=== PATIENT | male | born 1990 | race African-American/Black ===

== ENCOUNTER 2018-09-18 02:56 | Emergency (ER) | payer OTHER, MEDICAID ==
[~2018-09-18] VITALS: Ht 188 cm; Wt 100.0 kg
[2018-09-18] MEDS ORDERED: DIPHENHYDRAMINE 50MG/ML VIAL IM STA (06:51)
[2018-09-18] MEDS ORDERED: LORAZEPAM 2MG/ML CPJ IM ONE (07:00)
[2018-09-18] MEDS ORDERED: OLANZAPINE 10 MG/VIAL IM ONE (07:00)
[2018-09-18] MEDS ORDERED: BACITRACIN ZINC OINT UDPKT TOP ONE (07:00)
[2018-09-18 07:38] LABS: CLARITY URINE CLEAR (CLEAR); COLOR URINE YELLOW (YELLOW); KETONES URINE TRACE (NEGATIVE); LEUKOCYTE ESTERASE URINE NEGATIVE (NEGATIVE); NITRITE URINE NEGATIVE (NEGATIVE); OCCULT BLOOD URINE 2+ (NEGATIVE); PROTEIN URINE NEGATIVE (NEGATIVE); SPECIFIC GRAVITY URINE 1.007 (1.005-1.030); UROBILINOGEN URINE 0.2 E.U./dL (0.2-1.0)
[2018-09-18 09:22] LABS: HEMATOCRIT. 47.5 % (42.0-52.0); HEMOGLOBIN. 15.7 g/dL (14.0-18.0); MEAN CORPUSCULAR HEMOGLOBIN 28.4 pg (28.0-32.0); MEAN CORPUSCULAR VOLUME 85.7 fL (80.0-94.0); MEAN PLATELET VOLUME 7.7 fl (7.4-10.4); PLATELET 236 x1000/uL (130-400); RED BLOOD CELL COUNT 5.53 mill/uL (4.7-6.1); RED CELL DISTRIBUTION WIDTH 13.1 % (11.6-14.6)
[2018-09-18 09:24] LABS: CHLORIDE 100 mEq/L (98-107)
[2018-09-18 09:26] LABS: *AMPHETAMINES SCREEN URINE NEGATIVE (NEGATIVE); *BARBITURATES SCREEN URINE NEGATIVE (NEGATIVE); *BENZODIAZEPINES SCREEN URINE PRESUMTIVE POSITIVE (NEGATIVE)
[2018-09-18 09:27] LABS: *COCAINE SCREEN URINE NEGATIVE (NEGATIVE); CANNABINOID URINE SCREEN NEGATIVE (NEGATIVE); METHADONE URINE SCREEN NEGATIVE (NEGATIVE); OPIATES URINE SCREEN NEGATIVE (NEGATIVE); PHENCYCLIDINE URINE SCREEN NEGATIVE (NEGATIVE)
[2018-09-18 09:28] LABS: ETHANOL BLOOD < 10 mg/dL
[2018-09-18] MEDS ORDERED: TETANUS, DIPHTHERIA, PERTUSSIS VAC/PF 0.5ML (>7YR OLD) IM ONE (09:45)
[2018-09-18 10:08] VITALS: BP 161/81
[2018-09-18 10:18] LABS: PLATELET ESTIMATE NORMAL
== END 2018-09-18 11:58 | disposition home or self-care (01) ==
LOC: ER 02:56
DX: S00.81XA Abrasion of other part of head, initial encounter (principal); F20.9 Schizophrenia, unspecified; F91.8 Other conduct disorders; R45.1 Restlessness and agitation; R00.0 Tachycardia, unspecified; Z02.89 Encounter for other administrative examinations; Y35.893A Legal intervention involving other specified means, suspect injured, initial encounter; Y93.89 Activity, other specified; Y92.488 Other paved roadways as the place of occurrence of the external cause
CPT/HCPCS: 36415; 80053; 80305; 81003; 85025; 90471; 90715; 93005; 96372; 99284; G0482; J1200; J2060; J3490

== ENCOUNTER 2018-09-19 14:15 | Inpatient (IN) | payer MEDICAID, OTHER ==
[~2018-09-19] VITALS: Ht 172.7 cm; Wt 69.4 kg
[2018-09-19] MEDS: SODIUM CHLORIDE 0.9% 1,000 ML IV SCH (11:30)
[2018-09-19] MEDS ORDERED: SODIUM CHLORIDE 0.9% 1,000 ML IV ONE ×2 (15:05→16:33)
[2018-09-19] MEDS ORDERED: LORAZEPAM 2MG/ML CPJ IM STA (15:05)
[2018-09-19] MEDS ORDERED: ZIPRASIDONE MESYLATE 20MG/VIAL IM ONE (15:15)
[2018-09-19 15:54] LABS: HEMOGLOBIN. 15.2 g/dL (14.0-18.0); MEAN CORPUSCULAR HEMOGLOBIN 28.5 pg (28.0-32.0); MEAN CORPUSCULAR VOLUME 86.1 fL (80.0-94.0); MEAN PLATELET VOLUME 8.2 fl (7.4-10.4); PLATELET 260 x1000/uL (130-400); RED BLOOD CELL COUNT 5.35 mill/uL (4.7-6.1); RED CELL DISTRIBUTION WIDTH 12.9 % (11.6-14.6)
[2018-09-19 15:58] LABS: CHLORIDE 96 mEq/L (98-107)
[2018-09-19 16:02] LABS: ETHANOL BLOOD < 10 mg/dL
[2018-09-19 16:33] LABS: CREATINE KINASE 13913 IU/L (39-308)
[2018-09-19] MEDS ORDERED: LORAZEPAM 2MG/ML CPJ IV ONE (16:45)
[2018-09-19 17:06] LABS: PLATELET ESTIMATE NORMAL
[2018-09-19] MEDS ORDERED: MIDAZOLAM HCL 2 MG/2 ML VIAL IV ONE (17:30)
[2018-09-19] MEDS ORDERED: SODIUM CHLORIDE 0.9% 2,000 ML IV ONE (17:32)
[2018-09-19 18:33] LABS: CLARITY URINE CLEAR (CLEAR); COLOR URINE YELLOW (YELLOW); KETONES URINE 2+ (NEGATIVE); LEUKOCYTE ESTERASE URINE NEGATIVE (NEGATIVE); NITRITE URINE NEGATIVE (NEGATIVE); OCCULT BLOOD URINE 2+ (NEGATIVE); PROTEIN URINE TRACE (NEGATIVE); SPECIFIC GRAVITY URINE 1.015 (1.005-1.030)
[2018-09-19 18:43] LABS: *BARBITURATES SCREEN URINE NEGATIVE (NEGATIVE)
[2018-09-19 18:44] LABS: *AMPHETAMINES SCREEN URINE NEGATIVE (NEGATIVE); *BENZODIAZEPINES SCREEN URINE NEGATIVE (NEGATIVE); *COCAINE SCREEN URINE NEGATIVE (NEGATIVE); METHADONE URINE SCREEN NEGATIVE (NEGATIVE); OPIATES URINE SCREEN NEGATIVE (NEGATIVE); PHENCYCLIDINE URINE SCREEN NEGATIVE (NEGATIVE)
[2018-09-19 18:45] LABS: CANNABINOID URINE SCREEN NEGATIVE (NEGATIVE)
[2018-09-19] MEDS ORDERED: ONDANSETRON HCL 4MG/2ML INJ IV PRN (20:45)
[2018-09-19] MEDS ORDERED: CLONIDINE 0.1MG TABLET PO PRN (20:45)
[2018-09-19] MEDS ORDERED: MAGNESIUM/ALUMINUM HYDROXIDE/SIMETHICONE 30ML UDC PO PRN (20:45)
[2018-09-19] MEDS ORDERED: ACETAMINOPHEN 325MG TABLET PO PRN (20:45)
[2018-09-19] MEDS ORDERED: DIPHENHYDRAMINE 50MG/ML VIAL IV PRN (20:45)
[2018-09-19] MEDS ORDERED: LORAZEPAM 2MG/ML CPJ IV PRN (20:45)
[2018-09-19] MEDS ORDERED: DOCUSATE SODIUM 100MG CAPSULE PO PRN (20:45)
[2018-09-20] VITALS (32 sets, daily range): BP systolic 110–167; BP diastolic 54–106
[2018-09-20] MEDS ORDERED: HALOPERIDOL LACTATE 5MG/ML VIAL IM SCH (06:00)
[2018-09-20] MEDS ORDERED: ZIPRASIDONE MESYLATE 20MG/VIAL IM SCH (06:00)
[2018-09-20 06:22] LABS: BASOPHILS % 0.8 % (0.0-2.0); HEMATOCRIT. 44.3 % (42.0-52.0); HEMOGLOBIN. 14.8 g/dL (14.0-18.0); LYMPHOCYTES % 9.4 % (20.0-50.0); MEAN CORPUSCULAR VOLUME 86.6 fL (80.0-94.0); MEAN PLATELET VOLUME 8.5 fl (7.4-10.4); MONOCYTES % 10.9 % (2.0-8.0); NEUTROPHILS % 78.9 % (40.0-76.0); PLATELET 205 x1000/uL (130-400); RED BLOOD CELL COUNT 5.11 mill/uL (4.7-6.1); RED CELL DISTRIBUTION WIDTH 12.6 % (11.6-14.6)
[2018-09-20 06:29] LABS: CHLORIDE 104 mEq/L (98-107)
[2018-09-20 09:32] LABS: CREATINE KINASE 17093 IU/L (39-308)
[2018-09-20] MEDS: SODIUM CHLORIDE 0.9% 1,000 ML IV SCH (14:15)
[2018-09-20] MEDS ORDERED: HALOPERIDOL LACTATE 5MG/ML VIAL IM ONE (15:30)
[2018-09-20] MEDS: FAMOTIDINE 20MG/2ML VIAL IV SCH (15:44)
[2018-09-20] MEDS: LORAZEPAM 2MG/ML CPJ IV PRN ×3 (15:44→22:15)
[2018-09-20] MEDS: ENOXAPARIN 40MG/0.4ML SYR SUBCUT SCH (15:45)
[2018-09-20] MEDS ORDERED: BENZTROPINE MESYLATE 1MG TABLET PO ONE (15:45)
[2018-09-20] MEDS ORDERED: HALOPERIDOL LACTATE 5MG/ML VIAL IM PRN (21:15)
[2018-09-21] VITALS (62 sets, daily range): BP systolic 107–159; BP diastolic 49–103
[2018-09-21] MEDS: SODIUM CHLORIDE 0.9% 1,000 ML IV SCH ×4 (00:31→19:18)
[2018-09-21] MEDS: LORAZEPAM 2MG/ML CPJ IV PRN ×6 (01:37→21:50)
[2018-09-21] MEDS: HALOPERIDOL LACTATE 5MG/ML VIAL IM PRN (05:01)
[2018-09-21] MEDS: FAMOTIDINE 20MG/2ML VIAL IV SCH (09:19)
[2018-09-21] MEDS: ENOXAPARIN 40MG/0.4ML SYR SUBCUT SCH (15:00)
[2018-09-21 15:14] LABS: BASOPHILS % 0.5 % (0.0-2.0); EOSINOPHILS % 0.9 % (0.0-5.0); HEMATOCRIT. 39.7 % (42.0-52.0); HEMOGLOBIN. 13.1 g/dL (14.0-18.0); LYMPHOCYTES % 17.2 % (20.0-50.0); MEAN CORPUSCULAR VOLUME 87.6 fL (80.0-94.0); MEAN PLATELET VOLUME 7.7 fl (7.4-10.4); NEUTROPHILS % 69.4 % (40.0-76.0); PLATELET 194 x1000/uL (130-400); RED BLOOD CELL COUNT 4.53 mill/uL (4.7-6.1); RED CELL DISTRIBUTION WIDTH 12.8 % (11.6-14.6)
[2018-09-21 15:24] LABS: CHLORIDE 109 mEq/L (98-107)
[2018-09-21 15:46] LABS: CREATINE KINASE 6981 IU/L (39-308)
[2018-09-22] VITALS (10 sets, daily range): BP systolic 122–150; BP diastolic 65–94
[2018-09-22] MEDS: SODIUM CHLORIDE 0.9% 1,000 ML IV SCH ×3 (01:26→22:48)
[2018-09-22] MEDS: LORAZEPAM 2MG/ML CPJ IV PRN ×2 (05:26→21:21)
[2018-09-22] MEDS: FAMOTIDINE 20MG/2ML VIAL IV SCH (08:46)
[2018-09-22 10:45] LABS: BASOPHILS % 0.6 % (0.0-2.0); CHLORIDE 108 mEq/L (98-107); EOSINOPHILS % 1.4 % (0.0-5.0); HEMATOCRIT. 40.8 % (42.0-52.0); HEMOGLOBIN. 13.6 g/dL (14.0-18.0); LYMPHOCYTES % 14.7 % (20.0-50.0); MEAN CORPUSCULAR VOLUME 86.6 fL (80.0-94.0); MEAN PLATELET VOLUME 7.7 fl (7.4-10.4); MONOCYTES % 11.5 % (2.0-8.0); NEUTROPHILS % 71.8 % (40.0-76.0); PLATELET 213 x1000/uL (130-400); RED BLOOD CELL COUNT 4.71 mill/uL (4.7-6.1); RED CELL DISTRIBUTION WIDTH 12.5 % (11.6-14.6)
[2018-09-22 11:28] LABS: CREATINE KINASE 5376 IU/L (39-308)
[2018-09-22] MEDS ORDERED: OLAN15TA17 PO (12:52)
[2018-09-22] MEDS ORDERED: OLANZAPINE 15 MG PO SCH (13:30)
[2018-09-22] MEDS ORDERED: OLANZAPINE 5MG TABLET PO SCH (13:30)
[2018-09-22] MEDS: ENOXAPARIN 40MG/0.4ML SYR SUBCUT SCH (14:57)
[2018-09-22] MEDS: OLANZAPINE 5MG TABLET PO SCH (17:03)
[2018-09-22] MEDS: HALOPERIDOL LACTATE 5MG/ML VIAL IM PRN (21:21)
[2018-09-23] VITALS (21 sets, daily range): BP systolic 110–152; BP diastolic 50–107
[2018-09-23] MEDS: LORAZEPAM 2MG/ML CPJ IV PRN (04:45)
[2018-09-23] MEDS: HALOPERIDOL LACTATE 5MG/ML VIAL IM PRN (04:45)
[2018-09-23] MEDS: SODIUM CHLORIDE 0.9% 1,000 ML IV SCH (04:45)
[2018-09-23 08:59] LABS: BASOPHILS % 0.7 % (0.0-2.0); EOSINOPHILS % 2.8 % (0.0-5.0); HEMATOCRIT. 41.5 % (42.0-52.0); HEMOGLOBIN. 13.9 g/dL (14.0-18.0); LYMPHOCYTES % 23.9 % (20.0-50.0); MEAN CORPUSCULAR VOLUME 86.5 fL (80.0-94.0); MEAN PLATELET VOLUME 7.6 fl (7.4-10.4); MONOCYTES % 12.1 % (2.0-8.0); NEUTROPHILS % 60.5 % (40.0-76.0); PLATELET 216 x1000/uL (130-400); RED CELL DISTRIBUTION WIDTH 12.3 % (11.6-14.6)
[2018-09-23] MEDS: FAMOTIDINE 20MG/2ML VIAL IV SCH (09:11)
[2018-09-23] MEDS: OLANZAPINE 5MG TABLET PO SCH (09:11)
[2018-09-23 09:12] LABS: CHLORIDE 110 mEq/L (98-107)
[2018-09-23 09:32] LABS: CREATINE KINASE 3119 IU/L (39-308)
== END 2018-09-23 14:25 | disposition home or self-care (01) | DRG 469 ==
LOC: ER 14:37 → MICUSO 18:37 → EDBEDREQ 18:40 → EDBEDREQTM 18:40 → ENRESERV 22:47 → EDBEDREQSVC 09-20 00:03 → CANRESERV 09-20 04:06 → ENRESERV 09-20 04:06 → EDBEDREQSVC 09-20 11:02 → EDBEDREQ 09-20 11:02 → ENRESERV 09-20 11:55 → 8WST 09-22 15:29 → MICUSO 09-22 20:56
PROVIDERS: ADMIT Family Medicine Adult Medicine; ATTEND Family Medicine Adult Medicine
DX: N17.9 Acute kidney failure, unspecified (principal); R65.10 Systemic inflammatory response syndrome (SIRS) of non-infectious origin without acute organ dysfunction; M62.82 Rhabdomyolysis; E87.1 Hypo-osmolality and hyponatremia; E88.09 Other disorders of plasma-protein metabolism, not elsewhere classified; F20.9 Schizophrenia, unspecified; N39.0 Urinary tract infection, site not specified; F31.9 Bipolar disorder, unspecified; D72.829 Elevated white blood cell count, unspecified; R74.0 Nonspecific elevation of levels of transaminase and lactic acid dehydrogenase [LDH]
CPT/HCPCS: 36415; 73090; 76700; 80048; 80076; 80305; 82550; 84450; 84460; 96374; 96375; 99285; G0482; J1630; J1650; J2060; J2250; J3486; J3490; J7030; A4315

== ENCOUNTER 2023-05-01 17:20 | Emergency (ER) | payer MEDICARE, MEDICAID ==
[~2023-05-01] VITALS: Ht 172.7 cm; Wt 75.0 kg
[~2023-05-01 17:20] MED LIST: OLAN15TA35 PO
[2023-05-01 20:14] LABS: BASOPHILS % 0.6 % (0.0-2.0); EOSINOPHILS % 0.1 % (0.0-5.0); HEMATOCRIT. 44.5 % (42.0-52.0); HEMOGLOBIN. 15.1 g/dL (14.0-18.0); LYMPHOCYTES % 15.9 % (20.0-50.0); MEAN CORPUSCULAR HEMOGLOBIN 28.9 pg (28.0-32.0); MEAN CORPUSCULAR VOLUME 85.5 fL (80.0-94.0); MEAN PLATELET VOLUME 7.8 fl (7.4-10.4); MONOCYTES % 10.2 % (2.0-8.0); NEUTROPHILS % 73.2 % (40.0-76.0); PLATELET 213 x1000/uL (130-400); RED CELL DISTRIBUTION WIDTH 13.4 % (11.6-14.6)
[2023-05-01 20:17] LABS: CHLORIDE 108 mEq/L (98-107)
[2023-05-01 20:27] LABS: ETHANOL BLOOD < 10 mg/dL (-10)
[2023-05-01] MEDS ORDERED: LORAZEPAM 1MG TABLET PO ONE (20:30)
[2023-05-01] MEDS ORDERED: LORAZEPAM 1MG TABLET PO NR (23:15)
[2023-05-02] MEDS ORDERED: ZIPRASIDONE MESYLATE 20MG/VIAL IM ONE (03:00)
[2023-05-02 06:35] LABS: CLARITY URINE CLEAR (CLEAR); COLOR URINE DARK YELLOW (YELLOW); KETONES URINE 2+ (NEGATIVE); LEUKOCYTE ESTERASE URINE NEGATIVE (NEGATIVE); NITRITE URINE NEGATIVE (NEGATIVE); OCCULT BLOOD URINE 3+ (NEGATIVE); PROTEIN URINE 1+ (NEGATIVE); SPECIFIC GRAVITY URINE 1.029 (1.005-1.030)
[2023-05-02] MEDS ORDERED: LORAZEPAM 2MG/ML CPJ IM STA ×2 (06:40→07:18)
[2023-05-02] MEDS ORDERED: OLANZAPINE 10 MG/VIAL IM ONE ×4 (06:45→19:00)
[2023-05-02 07:14] LABS: *AMPHETAMINES SCREEN URINE NEGATIVE (NEGATIVE); *BARBITURATES SCREEN URINE NEGATIVE (NEGATIVE); *BENZODIAZEPINES SCREEN URINE NEGATIVE (NEGATIVE); *COCAINE SCREEN URINE NEGATIVE (NEGATIVE); CANNABINOID URINE SCREEN NEGATIVE (NEGATIVE); METHADONE URINE SCREEN NEGATIVE (NEGATIVE); OPIATES URINE SCREEN NEGATIVE (NEGATIVE); PHENCYCLIDINE URINE SCREEN NEGATIVE (NEGATIVE)
[2023-05-02] MEDS: OLANZAPINE 10MG TABLET PO SCH (17:00)
[2023-05-02 21:50] VITALS: O2SAT 100
[2023-05-03] MEDS ORDERED: ZIPRASIDONE MESYLATE 20MG/VIAL IM ONE (03:15)
[2023-05-03] MEDS: OLANZAPINE 10MG TABLET PO SCH ×2 (09:00→10:06)
[2023-05-03 15:25] VITALS: BP 138/87; PULSE 84; RESP 16; TEMP 98.1
== END 2023-05-03 15:26 | disposition short-term general hospital (02) ==
LOC: ER 17:20
DX: F29 Unspecified psychosis not due to a substance or known physiological condition (principal); F31.9 Bipolar disorder, unspecified; F20.9 Schizophrenia, unspecified; Z20.822 Contact with and (suspected) exposure to COVID-19
CPT/HCPCS: 80053; 80305; 81003; 80307; 80329; 80320; 85025; 36415; 99285; 87426; 96372; J3490 ×2; C9803; J2060; J3486 ×2; G0480